=== PATIENT | female | born 1995 | race Two or more races ===

== ENCOUNTER 2016-11-15 14:30 | Emergency (ER) | payer OTHER ==
[~2016-11-15 14:30] MED LIST: KEFLEX PO; KEFLEX500 MG PO; MIRALAX255 GM PO; NO MEDICATIONS; TYLENOL #3 PO; VOLTAREN75 MG PO
== END 2016-11-15 15:05 | disposition home or self-care (01) ==
LOC: SED 14:30
DX: H11.32 Conjunctival hemorrhage, left eye (principal); H10.9 Unspecified conjunctivitis
CPT/HCPCS: 99283